=== PATIENT | female | born 1975 | race Hispanic/Latino ===

== ENCOUNTER 2018-06-25 17:05 | Inpatient (IN) | payer SELFPAY ==
[~2018-06-25] VITALS: Ht 157.5 cm; Wt 68.9 kg
[2018-06-25] MEDS ORDERED: SODIUM CHLORIDE 0.9% 1000ML 1,000 ML IV STA (17:11)
[2018-06-25 17:39] LABS: BASOPHILS % 0.1 % (0.0-1.0); LYMPHOCYTES # (AUTO) 0.7 (1.0-3.2); LYMPHOCYTES % 10.1 % (18.0-39.1); MEAN CORPUSCULAR HEMOGLOBIN 17.5 pg (28-32); MEAN CORPUSCULAR HGB CONC 27.6 g/dL (31-35); MEAN CORPUSCULAR VOLUME 63.4 fL (81-99); MONOCYTES # (AUTO) 0.1 (0.2-0.8); MONOCYTES % 1.5 % (4.4-11.3); NEUTROPHILS # (AUTO) 6.3 (2.1-6.9); NEUTROPHILS % 87.9 % (38.7-80.0); PLATELET COUNT 335 x10e3/uL (140-360); RED BLOOD COUNT 2.57 x10e6/uL (3.6-5.1); RED CELL DISTRIBUTION WIDTH 19.8 % (11.7-14.4)
[2018-06-25 17:53] LABS: ALANINE AMINOTRANSFERASE 32 IU/L (0-55); ALBUMIN/GLOBULIN RATIO 1.1 (0.8-2.0); ALKALINE PHOSPHATASE 45 IU/L (40-150); ANION GAP 13.8 mmol/L (8-16); BLOOD UREA NITROGEN 13 mg/dL (7-26); BUN/CREATININE RATIO 17 (6-25); CALCIUM 8.8 mg/dL (8.4-10.2); CARBON DIOXIDE 24 mmol/L (22-29); CHLORIDE 101 mmol/L (98-107); CREATININE, SERUM 0.76 mg/dL (0.57-1.11); EST GLOMERULAR FILTRATION RATE > 60 ML/MIN (60-); GLUCOSE 119 mg/dL (74-118); POTASSIUM 3.8 mmol/L (3.5-5.1); SODIUM 135 mmol/L (136-145)
[2018-06-25 18:05] LABS: HEMATOCRIT 16.3 % (34.2-44.1); HEMOGLOBIN 4.5 g/dL (12.0-16.0)
[2018-06-25 18:12] LABS: PROTHROMBIN TIME 14.1 seconds (11.9-14.5)
[2018-06-25] MEDS ORDERED: SODIUM CHLORIDE 0.9% 250ML 250 ML IV ONE (18:15)
[2018-06-25 18:27] LABS: CLARITY,URINE SL CLOUDY (CLEAR); COLOR,URINE YELLOW (YELLOW); KETONES,URINE TRACE (NEGATIVE); LEUKOCYTE ESTERASE ,URINE TRACE (NEGATIVE); NITRITE,URINE POSITIVE (NEGATIVE); PROTEIN,URINE DIPSTICK NEGATIVE (NEGATIVE); URINE UROBILINOGEN 0.2 mg/dL (0.2 - 1)
[2018-06-25 18:28] LABS: BILIRUBIN,URINE NEGATIVE (NEGATIVE)
[2018-06-25 18:37] LABS: BACTERIA,URINE FEW /HPF; EPITHELIAL CELLS,URINE FEW /LPF; RBC,URINE >50 /HPF (0-5); WBC,URINE (MAN) 0-5 /HPF (0-5)
--- NOTE | 2018-06-25 19:59 | Diagnostic Imaging Report ---
EXAM: US TRANSVAGINAL INDICATION: Vaginal bleeding COMPARISON: None TECHNIQUE: Grayscale transverse and sagittal transabdominal and transvaginal images were obtained of the pelvis. Transvaginal images were necessary to better assess anatomic detail. The ovaries were examined with grayscale, color Doppler, and spectral waveform analysis. LMP 06/12/18 FINDINGS: Uterus Orientation: Normal Size: 10.2 x 4.7 x 5.3 cm, Mass: None Cervix: Normal Endometrium: Thickness: 1.5 cm, upper limits of normal. Appearance:, Heterogeneous echotexture without focal thickening. Right ovary: Size: 2.0 x 2.7 x 2.3 cm Mass/Cyst: None Left ovary: Size: 2.6 x 2.8 x 3.0 cm Mass/Cyst: None Adnexa: Normal Cul-de-sac: No free fluid IMPRESSION: 1. Normal appearing ovaries. 2. Endometrial stripe borderline thickened, 1.5 cm Signed by: Dr Lulú Hunt MD on 06/25/2018 7:56 PM
[2018-06-25] MEDS ORDERED: SODIUM CHLORIDE 0.9% 250ML 250 ML ONE (21:26)
[2018-06-26] VITALS (8 sets, daily range): BP systolic 97–118; BP diastolic 60–70
[2018-06-26] MEDS: ACETAMINOPHEN 325 MG TAB PO PRN ×2 (00:46→15:19)
[2018-06-26] MEDS ORDERED: SODIUM CHLORIDE 0.9% 250ML 250 ML ONE (01:38)
[2018-06-26 06:59] LABS: HEMATOCRIT 19.4 % (34.2-44.1)
[2018-06-26] MEDS ORDERED: SODIUM CHLORIDE 0.9% 250ML 250 ML IV ONE (07:45)
[2018-06-26] MEDS ORDERED: ONDANSETRON HCL INJ 2 MG/ML VIAL IV PRN (10:15)
[2018-06-26] MEDS ORDERED: MORPHINE SULFATE 5 MG/ML VIAL IV PRN (10:30)
[2018-06-26] MEDS ORDERED: HYDROCODONE/APAP 5MG-325MG TAB PO PRN (10:30)
[2018-06-26] MEDS ORDERED: MORPHINE SULFATE INJ 4 MG/ML INJ IV PRN (10:30)
--- NOTE | 2018-06-26 11:03 | History and Physical ---
CHIEF COMPLAINT: Vaginal bleeding. HPI: This is a 42-year-old female who has had vaginal bleeding ongoing for the last 2 weeks. She reports that she is currently on her menstrual cycle. She does not follow up with BODYWORK THERAPIST as an outpatient. Does not have a PCP. She came in very anemic and very pale appearing, fatigued, and very weak. Found to have a hemoglobin of approximately about 4 to 4.5, and came into the ED for further evaluation. The patient is currently in IMCU and received 2 units packed RBCs. Current hemoglobin is 6 an continues to have vaginal bleeding. NOTCHING MACHINE OPERATOR consulted. REVIEW OF SYSTEMS: Pertinent positive is just vaginal bleeding, pale, weak, and lightheadedness. The rest of the 14-point review of systems have been reviewed with the patient and are negative. ALLERGIES: NO KNOWN DRUG ALLERGIES. HOME MEDICATIONS: None. PAST MEDICAL HISTORY: None. SURGICAL HISTORY: None. FAMILY HISTORY: Hypertension and diabetes. SOCIAL HISTORY: No drugs. No alcohol. Does not smoke. PHYSICAL EXAMINATION VITAL SIGNS: Temperature is 98.7, pulse 61, respiratory rate 16, blood pressure is 118/60, pulse ox 100% on room air. GENERAL: Not in acute distress. Alert and oriented times 3. Cooperative on examination. HEENT: Head is normocephalic and atraumatic. Eyes: Pupils equal, round and reactive to light bilaterally. Extraocular movements intact bilaterally. NECK: Supple. Good range of motion. Throat with no evidence of any erythema or exudates in the posterior pharynx. Has poor dentition. PULMONARY: Clear to auscultation bilaterally. No wheezing. No rales. No rhonchi. No crackles appreciated. CARDIOVASCULAR: Positive S1 and S2. No murmurs, rubs or gallops appreciated. ABDOMEN: Soft, nondistended and nontender to palpation. Bowel sounds present. MUSCULOSKELETAL: Strength is 5/5 throughout. No evidence of any muscle deficit on examination. LAB FINDINGS: Show hemoglobin yesterday was 4.5 and now 6. The rest of the electrolyte are stable. Platelets of 335,000. Sodium 135, potassium 3.8, chloride 101, bicarb 24, anion gap of 30, BUN is 13, creatinine is 0.76, glucose is 119. Calcium is 8.8. Total protein is 0.5, AST 27, ALT 32. Albumin is 4. Urinalysis was negative. MICROBIOLOGY: Urine culture is pending. IMAGING STUDIES: A transvaginal ultrasound shows endometrial lining thickening of 1.5 cm. Normal appearing ovaries. IMPRESSION 1. Vaginal bleeding. 2. Anemia secondary to vaginal bleeding. 3. Lightheadedness, dizziness and weakness. PLAN: At this time, the patient has received 2 units of packed RBCs. The current hemoglobin is 6. Will transfuse 3 more units of packed RBCs. Await for BODYWORK THERAPIST. Recommendation is pelvic examination. Get a.m. labs. No anticoagulation due to vaginal bleeding. Continue on a regular diet. Pain control. Discussed case with nursing staff. Job#: [id number] SIA
[2018-06-26] MEDS ORDERED: MEDROXYPROGESTERONE ACETATE 150 MG/ML VIAL IM ONE (12:45)
--- NOTE | 2018-06-26 13:18 | Consultation ---
DATE OF CONSULTATION: The patient is a 42 year old who came in complaining of heavy vaginal bleeding with clots for the last 2 weeks. Her previous periods were normal. She denies abnormal discharge, abdominal pain, loss of weight. Her ultrasound showed nonsignificant findings. However, checking her hemoglobin showed very low levels for which she will be having a blood transfusion. PAST MEDICAL HISTORY: Not significant. PAST SURGICAL HISTORY: Not significant. ALLERGIES: NO KNOWN DRUG ALLERGIES. MEDICATIONS: None. SOCIAL HISTORY: Denied smoking, ethanol or drug abuse. PHYSICAL EXAMINATION VITAL SIGNS: Stable. CHEST: Clear to auscultation. HEART: Regular rate and rhythm. ABDOMEN: Soft and nontender. ASSESSMENT AND PLAN: A 42 year old with menorrhagia. Ultrasound was insignificantly abnormal. I recommend giving the patient intramuscular injection of Depo-Provera 150 mg and 4 units of blood transfusion to improve her hemoglobin. Send her home to come to the office for evaluation and endometrial biopsy. The patient understands her options fully. All of her questions were answered. She will be coming to see me in the office in due course. Please send the patient home on oral iron therapy as well. Job#: [id number] RI cc:EBER BUENROSTRO MD
[2018-06-26 22:34] LABS: HEMATOCRIT 30.5 % (34.2-44.1); HEMOGLOBIN 9.9 g/dL (12.0-16.0)
[2018-06-27] VITALS (7 sets, daily range): BP systolic 92–122; BP diastolic 51–68
[2018-06-27 05:28] LABS: BASOPHILS % 0.3 % (0.0-1.0); EOSINOPHILS # (AUTO) 0.1 (0.0-0.4); HEMATOCRIT 30.4 % (34.2-44.1); LYMPHOCYTES % 28.7 % (18.0-39.1); MEAN CORPUSCULAR HEMOGLOBIN 24.1 pg (28-32); MEAN CORPUSCULAR HGB CONC 32.2 g/dL (31-35); MONOCYTES # (AUTO) 0.7 (0.2-0.8); MONOCYTES % 9.6 % (4.4-11.3); NEUTROPHILS # (AUTO) 4.1 (2.1-6.9); PLATELET COUNT 217 x10e3/uL (140-360); RED CELL DISTRIBUTION WIDTH 23.6 % (11.7-14.4)
[2018-06-27 05:42] LABS: ANION GAP 8.9 mmol/L (8-16); BLOOD UREA NITROGEN 9 mg/dL (7-26); BUN/CREATININE RATIO 13 (6-25); CALCIUM 8.4 mg/dL (8.4-10.2); CARBON DIOXIDE 25 mmol/L (22-29); CHLORIDE 109 mmol/L (98-107); CREATININE, SERUM 0.67 mg/dL (0.57-1.11); EST GLOMERULAR FILTRATION RATE > 60 ML/MIN (60-); GLUCOSE 92 mg/dL (74-118); POTASSIUM 3.9 mmol/L (3.5-5.1); SODIUM 139 mmol/L (136-145)
[2018-06-27 05:54] LABS: HEMOGLOBIN 9.8 g/dL (12.0-16.0); RED BLOOD COUNT 4.06 x10e6/uL (3.6-5.1)
[2018-06-27 05:55] LABS: MEAN CORPUSCULAR VOLUME 74.9 fL (81-99)
[2018-06-27 07:59] LABS: PLATELET ESTIMATE ADEQUATE; PLATELET MORPHOLOGY COMMENT NORMAL; RBC MORPHOLOGY COMMENT ABNORMAL
[2018-06-27 08:00] LABS: ANISOCYTOSIS MODERATE; HYPOCHROMASIA MODERATE; POIKILOCYTOSIS S; POLYCHROMASIA S
[2018-06-27] MEDS: ACETAMINOPHEN 325 MG TAB PO PRN (09:40)
[2018-06-27] MEDS ORDERED: FERROUS SULFAT325 MG PO (16:19)
--- NOTE | 2018-06-27 16:57 | Discharge Summary ---
FINAL DISCHARGE DIAGNOSES 1. Vaginal bleeding status post Depo shot given with blood transfusion. 2. Anemia secondary to #1. 3. Medical noncompliance. BUCKLE STRINGER: [facility]TAILINGS MAN. VITAL SIGNS: Temperature is 97.3, pulse 93, respiratory rate 14, blood pressure 106/51, pulse ox 95% on room air. LAB FINDINGS: White count is 6.8. Hemoglobin on admission was 4.5, then 6, then 9.9, then 9.8 after blood transfusion. Hematocrit is 30 and platelets 217. Coagulation: PT 14, INR 1, PTT 25. Chemistry: Sodium 139, potassium 3.9, chloride 109, bicarb 25, anion gap 8.9. BUN 9, creatinine 0.67. Glucose 92. Calcium 8.4. LFTs were normal. Beta hCG was negative. Urinalysis was 4+ blood and greater than 50 RBCs. MICROBIOLOGY: Urine culture was found to be negative. IMAGING STUDIES: Transvaginal ultrasound showed endometrial thickening of 1.5 cm thick. The ovaries appeared to be normal. HOSPITAL COURSE: This 42-year-old female with no past medical history comes in with severe onset of vaginal bleeding ongoing for the last 4 to 5 days. Patient reports that she was on her menses but has had increased vaginal bleeding. She reported to the ED due to fatigue and weakness. She was found to have a hemoglobin of 4.5. Patient was given blood transfusion. On discharge, her hemoglobin 9.8. OB-TAILINGS MAN was consulted. The patient was given a Depo-Provera shot IM. Patient was advised by OB-TAILINGS MAN to follow up as an outpatient in their office in 1 week to get an endometrial biopsy due to the fact that the endometrial lining is very thick and needs further evaluation. I discussed this with the patient, and she verbalized understanding. On discharge, the patient was doing well with no more evidence of vaginal bleeding. On the day of discharge, the vital signs are stable. Labs are reviewed and stable. The patient was seen and evaluated and examined thoroughly on the day of discharge. No other complaints. The patient verbalized an understanding and agreed to the plan of care, to follow up accordingly as an outpatient with her primary care physician in 1 week and OB-TAILINGS MAN in 1 week. MEDICATIONS: See med reconciliation form. DISPOSITION: Home. CONDITION: Stable. DIET: Heart healthy. In the event of any worsening symptoms, the patient was advised to come back to the ED for further evaluation. This discharge summary took greater than 35 minutes. EBER BUENROSTRO MD Job#: [id number]
== END 2018-06-27 17:14 | disposition home or self-care (01) | DRG 761 ==
LOC: ER 17:05 → ERHOLD 18:23 → IMCU 06-26 00:36 → MED/SURG 06-26 23:04
PROVIDERS: ADMIT Internal Medicine; ATTEND Internal Medicine
PROC: 30233N1 Transfusion of Nonautologous Red Blood Cells into Peripheral Vein, Percutaneous Approach (ICD-10-PCS; principal; 2018-06-26)
DX: N92.0 Excessive and frequent menstruation with regular cycle (principal); D50.0 Iron deficiency anemia secondary to blood loss (chronic); Z91.19 Patient's noncompliance with other medical treatment and regimen; R93.89 Abnormal findings on diagnostic imaging of other specified body structures
CPT/HCPCS: 36415; 76830; 80048; 80053; 81001; 84702; 85014; 85018; 85025; 85610; 85730; 86850; 86900; 86920; 87086; 99284; J7030; J7050; P9016

== ENCOUNTER 2018-10-04 17:35 | Emergency (ER) | payer SELFPAY ==
[~2018-10-04] VITALS: Ht 157.5 cm; Wt 73.5 kg
[~2018-10-04 17:35] MED LIST: FERROUS SULFAT325 MG PO
--- OUTSIDE RECORDS SUMMARY | 2018-10-04 17:38 | XMS REPORT | Clinical Summary ---
Author Author [facility] Organization [facility] Address Unknown Phone Unavailable Care Team Providers Care Cement Mason Name Role Phone PCP Unavailable Allergies Comments Active Allergy Reactions Severity Noted Date Morphine Itching Medium 09/15/2018 Medications End Date Status Medication Sig Dispensed Refills Start Date Active docusate sodium (COLACE) Take 1 20 capsule 0 100 mg capsule by 8 capsuleIndications: mouth 2 times Vaginal bleeding daily as needed for up to 10 doses for Constipation. Active POTASSIUM OR Take by 0 mouth. Active IRON OR Take by 0 mouth. Active ibuprofen (MOTRIN) 600 mg Take 1 tablet 30 tablet 0 tabletIndications: by mouth 9 Uterine leiomyoma, every 6 unspecified location, hours. Vaginal bleeding Active traMADol (ULTRAM) 50 mg Take 1 tablet 15 tablet 0 tabletIndications: by mouth 9 Uterine leiomyoma, every 6 hours unspecified location, as needed for Vaginal bleeding Pain. Active medroxyPROGESTERone In the 60 tablet 0 (PROVERA) 10 mg setting of 9 tabletIndications: heavy vaginal Uterine leiomyoma, bleeding take unspecified location, two 10mg Vaginal bleeding tablets by mouth daily till the bleeding stops.. 08/09/2018 medroxyPROGESTERone Take 2 60 tablet 0 (PROVERA) 10 mg tablets by 8 tabletIndications: mouth daily Vaginal bleeding for 30 days. 08/09/2018 ferrous sulfate 325 mg Take 1 tablet 30 tablet 0 (65 mg iron) by mouth 8 tabletIndications: daily (with Vaginal bleeding breakfast) for 30 days. 09/26/2018 docusate sodium (COLACE) Take 2 10 capsule 0 100 mg capsules by 9 capsuleIndications: mouth 2 times Uterine leiomyoma, daily as unspecified location, needed for up Pelvic pain in female to 10 days for Constipation. Active Problems Problem Noted Date Fibroid uterus 08/29/2018 Overview: Added automatically from request for surgery [id number] Pelvic pain in female 07/10/2018 Vaginal bleeding Fibroid Encounters Care Team Description Date Type Specialty Althea Dahl, MD 09/15/2018 Anesthesia Event Laurence Horvath MD Exam Under Anesthesia, Vaginal myomectomy, Insertion of Vaginal Tamponade 09/15/2018 Surgery Laurence Horvath MD Uterine leiomyoma, unspecified location (Primary Dx); Vaginal bleeding; Pelvic pain in female 09/15/2018 Hospital - Encounter 09/16/2018 Josep Biggs MD 09/07/2018 Hospital Lab Encounter Laurence Horvath MD Vu, Joseph H, MD 09/07/2018 Hospital Encounter Di Griffin Interpretation 09/07/2018 Telephone Lexie Roman Interpretation 09/07/2018 Telephone 09/07/2018 Travel Davin Alvarado I Surgery 09/05/2018 Telephone Paz Alicea NP Follow-up 09/04/2018 Telephone Gynecology Samir Christensen, MD Josep Biggs MD Abnormal uterine bleeding (AUB) (Primary Dx); Uterine leiomyoma, unspecified location 08/29/2018 Office Visit Gynecology Allyson Osborne ResidentMD 08/29/2018 Pre-Clinic Review Kaela Rosales Interpretation 08/29/2018 Telephone Davin Griffin Interpretation 08/29/2018 Telephone Paz Alicea NP Follow-up 08/25/2018 Telephone Gynecology NO SHOW ENCOUNTER (Primary Dx) 08/11/2018 Office Visit Gynecology Dejon Foster Interpretation 08/11/2018 Telephone Paz Alicea NP Follow-up 08/11/2018 Telephone Gynecology NO SHOW ENCOUNTER (Primary Dx) 08/04/2018 Office Visit Gynecology Paz Alicea NP Follow-up 08/04/2018 Telephone Gynecology Di Griffin Interpretation 08/04/2018 Telephone Paz Alicea NP Follow-up 08/04/2018 Telephone Gynecology Chaz Miguel Interpretation 08/04/2018 Telephone Kaela Rosales Interpretation 08/04/2018 Telephone 08/04/2018 Travel Ancelmo Smith MD Pelvic pain in female (Primary Dx); Vaginal bleeding 07/10/2018 Emergency Emergency Medicine 07/10/2018 Travel after 10/03/2017 Social History Date Tobacco Use Types Packs/Day Years Used Unknown If Ever Smoked Smokeless Tobacco: Never Used Alcohol Use Drinks/Week oz/Week Comments Not Currently Sex Assigned at Date Recorded Not on file Industry Job Start Date Occupation Not on file Not on file Not on file Travel End Travel History Travel Start No recent travel history available. Last Filed Vital Signs Time Taken Vital Sign Reading 09/16/2018 11:30 AM FLATWORK FOLDER Blood Pressure 131/78 09/16/2018 11:30 AM FL[employer]WORK FOLDER Pulse 60 09/16/2018 11:20 AM FLATWORK FOLDER Temperature 36.9 C (98.4 F) 09/16/2018 11:30 AM FLATWORK FOLDER Respiratory Rate 18 09/15/2018 9:03 PM FLATWORK FOLDER Oxygen Saturation 99% - Inhaled Oxygen - Concentration 09/15/2018 7:30 AM FLATWORK FOLDER Weight 73.5 kg (162 lb) 09/15/2018 7:30 AM FLATWORK FOLDER Height 154.9 cm (5' 1") 09/15/2018 7:30 AM FLATWORK FOLDER Body Mass Index 30.61 Plan of Treatment Care Team Description Date Type Specialty Josep Biggs MD [address] [place] [address] [phone] 4 wk postop 2018 Office Visit Gynecology Health Maintenance Due Date Last Done Comments Cervical Cancer Scrn (3 1994 Yrs) Breast Cancer Scrn 2013 (Yearly) IMM Influenza Seasonal 04/17/2018Apr to September (>/=19 yrs) Procedures Comments Procedure Name Priority Date/Time Associated Diagnosis CBC STAT 09/16/2018 4:40 AM FLATWORK FOLDER CBC/DIFF STAT 09/15/2018 5:05 PM FLATWORK FOLDER SEQUENTIAL COMPRESSION STAT 09/15/2018 PUMP 1:08 PM FLATWORK FOLDER INFUSION PUMP STAT 09/15/2018 1:08 PM FLATWORK FOLDER TRANSFUSE (ADDITIONAL RED Routine 09/15/2018 CELL UNITS - NURSING) 12:39 PM FLATWORK FOLDER [facility] SURGICAL PATHOLOGY Routine 09/15/2018 12:37 PM FLATWORK FOLDER INTUBATION Routine 09/15/2018 12:03 PM FLATWORK FOLDER Procedure Note - Na Adams CRNA - 09/15/2018 12:03 PM FLATWORK FOLDER Intubation Date/Time: 09/15/2018 12:00 PM Urgency: elective Airway not difficult General Informatio n and Staff Patient location during procedure: OR Anesthesio logist: Lillie Han MD Resident/C RNA: Na Adams CRNA Performed: resident/C RNA Indicatio ns and Patient Condition Indication s for airway management : anesthesia Spontaneou s ventilatio n: present (prior to induction) Sedation level: deep (after induction) Preoxygena bulmaro: yes Patient position: sniffing Mask difficulty assessment : 0 - not attempted Final Airway Details Final airway type: supraglott ic airway Successful airway: I-Gel Size 4 Number of attempts at approach: 1 Additiona l Comments Preoxygena bulmaro/denitr ogenated X > 5 minutes. LMA easily placed X 1 attempt by QUALITY HEAD. OGT easily advanced to 65 cm; stomach decompress ed. Atraumatic . VALET ATTENDANT - HYSTEROSCOPY 09/15/2018 Fibroid uterus (H-SCOPE) 9:05 AM FLATWORK FOLDER Special Needs 6:30 am arrival time confirmed with patient 12 LEAD EKG Routine 09/15/2018 8:22 AM FLATWORK FOLDER TYPE AND CROSSMATCH Routine 09/15/2018 (RBCS-LAB) 7:30 AM FLATWORK FOLDER CBC STAT 09/15/2018 7:30 AM FLATWORK FOLDER POCT URINE DIPSTICK - Routine 09/15/2018 TYPE AND SCREEN Routine 09/07/2018 Abnormal uterine bleeding 9:07 AM FLATWORK FOLDER (AUB) Uterine leiomyoma, unspecified location PATHOLOGIST REVIEW Routine 09/07/2018 8:55 AM FLATWORK FOLDER HIV-1/HIV-2 ROUTINE Routine 09/07/2018 Abnormal uterine bleeding SCREENING 8:55 AM FLATWORK FOLDER (AUB) Uterine leiomyoma, unspecified location CBC/DIFF Routine 09/07/2018 Abnormal uterine bleeding 8:55 AM FLATWORK FOLDER (AUB) Uterine leiomyoma, unspecified location DUPLEX DOPPLER ABD/PEL STAT 07/10/2018 Pelvic pain in female VASCULAR STUDY, COMPLETE 5:06 PM FLATWORK FOLDER U/S PELVIS LTD NON-OB STAT 07/10/2018 Pelvic pain in female 5:06 PM FLATWORK FOLDER U/S TRANSVAGINAL STAT 07/10/2018 Pelvic pain in female 5:06 PM FLATWORK FOLDER TEST STAT 07/10/2018 3:15 PM FLATWORK FOLDER UA CHEMISTRIES STAT 07/10/2018 3:15 PM FLATWORK FOLDER TYPE AND SCREEN STAT 07/10/2018 2:25 PM FLATWORK FOLDER BMP POC Routine 07/10/2018 2:17 PM FLATWORK FOLDER CBC/DIFF Routine 07/10/2018 2:05 PM FLATWORK FOLDER after 10/03/2017 Results * CBC (09/16/2018 4:40 AM FLATWORK FOLDER) Only the most recent of 2 results within the time period is included. WBC 6.2 4.5 - 11.0 K/uL BT MAIN-STATION 2 RBC 3.93 (L) 4.20 - 5.40 M/uL BT MAIN-STATION 2 Hemoglobin 9.8 (L) 12.0 - 16.0 g/dL BT MAIN-STATION 2 Hematocrit 31.9 (L) 37.0 - 47.0 % BT MAIN-STATION 2 MCV 81 (L) 82 - 92 fL BT MAIN-STATION 2 MCH 24.9 (L) 27.0 - 32.0 pg BT MAIN-STATION 2 MCHC 30.7 (L) 32.0 - 36.0 g/dL BT MAIN-STATION 2 RDW 51.2 (H) 36.4 - 46.3 fL BT MAIN-STATION 2 Platelet 220 150 - 400 K/uL BT MAIN-STATION 2 Mean Platelet 10.2 9.4 - 12.4 fL BT MAIN-STATION Volume 2 Percent NRBC 0.0 BT MAIN-STATION 2 Absolute NRBC 0.00 BT MAIN-STATION 2 Specimen Blood Performing Organization Address City/State/Zipcode Phone Number [facility] BT MAIN-STATION 2 * CBC/DIFF (09/15/2018 5:05 PM FLATWORK FOLDER) Only the most recent of 3 results within the time period is included. WBC 5.6 4.5 - 11.0 K/uL BT MAIN-STATION 2 RBC 3.95 (L) 4.20 - 5.40 M/uL BT MAIN-STATION 2 Hemoglobin 9.9 (L) 12.0 - 16.0 g/dL BT MAIN-STATION 2 Hematocrit 32.3 (L) 37.0 - 47.0 % BT MAIN-STATION 2 MCV 82 82 - 92 fL BT MAIN-STATION 2 MCH 25.1 (L) 27.0 - 32.0 pg BT MAIN-STATION 2 MCHC 30.7 (L) 32.0 - 36.0 g/dL BT MAIN-STATION 2 RDW 51.1 (H) 36.4 - 46.3 fL BT MAIN-STATION 2 Platelet 213 150 - 400 K/uL BT MAIN-STATION 2 Mean Platelet 9.9 9.4 - 12.4 fL BT MAIN-STATION Volume 2 Percent NRBC 0.0 BT MAIN-STATION 2 Absolute NRBC 0.00 BT MAIN-STATION 2 Neutrophil 64.1 34.0 - 70.0 % BT MAIN-STATION 2 Lymphocyte 25.2 20.0 - 50.0 % BT MAIN-STATION 2 Monocyte 9.3 5.0 - 12.0 % BT MAIN-STATION 2 Eosinophil 0.5 (L) 0.7 - 5.0 % BT MAIN-STATION 2 Basophil 0.5 0.1 - 1.2 % BT MAIN-STATION 2 Pct Immat Gran 0.4 0.0 - 0.5 BT MAIN-STATION 2 Neutrophil, Abs 3.59 1.56 - 6.13 K/uL BT MAIN-STATION 2 Lymphocyte, Abs 1.41 1.18 - 3.74 K/uL BT MAIN-STATION 2 Monocyte, Abs 0.52 (H) 0.24 - 0.36 K/uL BT MAIN-STATION 2 Eosinophil, Abs 0.03 (L) 0.04 - 0.36 K/uL BT MAIN-STATION 2 Basophil, Abs 0.03 0.01 - 0.08 K/uL BT MAIN-STATION 2 Absol Immat 0.02 0.00 - 0.03 K/uL BT MAIN-STATION Gran 2 Specimen Blood Performing Organization Address City/State/Zipcode Phone Number [facility] BT MAIN-STATION 2 * TRANSFUSE (ADDITIONAL RED CELL UNITS - NURSING) (09/15/2018 12:39 PM FLATWORK FOLDER) Only the most recent of 2 results within the time period is included. * [facility] SURGICAL PATHOLOGY (09/15/2018 12:37 PM FLATWORK FOLDER) HX FINAL UTERINE FIBROID, MYOMECTOMY: COPATH DIAGNOSIS - LEIOMYOMA Carmel Solo/[id number] Staff Pathologist Narrative Performed At [facility] LIZETT KENNEY [facility] Date of 1975 Hospital Number [id number] Location [address] Obstetrics SURGICAL PATHOLOGY Collected:09/15/2018 12:37 Received:09/15/2018 14:05 PATHOLOGIC DIAGNOSIS UTERINE FIBROID, MYOMECTOMY: - LEIOMYOMA Carmel Solo/[id number] Staff Pathologist Pertinent Clinical Information Prolapsing fibroid Gross Description Specimen Material: Uterine fibroid The case is received in one part labeled with the patient's name "LIZETT KENNEY", medical record number and given accession number [id number], and it is accompanied by a requisition form labeled with the same name and accession number. Received in formalin labeled "UTERINE FIBROID" is a 14.7 gram, 4.5 x 2.5 x 2.5 cm polypoid red-gloria tissue with a stalk at one end.The presumed stalk is inked blue.The specimen is serially sectioned to reveal a gloria-white to yellow whorled cut surface that is edematous.Paving Bed Maker sections including stalk are submitted in cassettes [id number]. Marjan HAAS/[id number] Pathology Resident Microscopic Description Fibroid is a well-circumscribed cellular proliferation of spindled cells with no atypia, increased mitosis, or necrosis seen.There is overlying endometrium with exogenous hormonal effect. I have personally reviewed the relevant preparations for the specimen(s), reviewedand agreed with the resident/fellow's interpretation. Marjan HAAS/[id number] Pathology Resident Electronically Signed Out Carmel Solo MD, MPH/[id number] Staff Pathologist Performing Organization Address City/State/Zipcode Phone Number [facility], [place] * 12 LEAD EKG (09/15/2018 8:22 AM FLATWORK FOLDER) 12 LEAD EKG FOR SMS [facility] Test Date:2018-09-15 Pat Name: LIZETT KENNEY Department: [facility] Room: Gender: F Kettle Girl: HILDA [id number] [birth year] Requested By: LILLIE Black Order Number: [id number] Reading MD: Jing Oropeza M.D. Measurements Intervals [place] Rate: 71 P:64 TX: 151 QRS: 45 QRSD: 90 T:22 QT: 394 QTc:431 Interpretive Statements SINUS RHYTHM Electronically Signed On 09-15-2018 8:32:18 FLATWORK FOLDER by Jing Oropeza M.D. Performing Organization Address City/[facility] Phone Number [facility] * TYPE AND CROSSMATCH (RBCS-LAB) (09/15/2018 7:30 AM FLATWORK FOLDER) ABO/RH O Positive BT BLOOD BANK Antibody Screen Negative BT BLOOD BANK Sample 09/18/2018 BT BLOOD BANK Expiration Unit Number [id number] BT BLOOD BANK Blood Component Leuko-poor red cells BT BLOOD BANK UNIT DIVISION 0 BT BLOOD BANK Status of Unit Issued,final BT BLOOD BANK Transfusion OK to transfuse BT BLOOD BANK Status Crossmatch Compatible BT BLOOD BANK Result Unit Number [id number] BT BLOOD BANK Blood Component Leuko-poor red cells BT BLOOD BANK UNIT DIVISION 0 BT BLOOD BANK Status of Unit Issued,final BT BLOOD BANK Transfusion OK to transfuse BT BLOOD BANK Status Crossmatch Compatible BT BLOOD BANK Result Unit Number [id number] BT BLOOD BANK Blood Component Leuko-poor red cells BT BLOOD BANK UNIT DIVISION 0 BT BLOOD BANK Status of Unit Issued,final BT BLOOD BANK Transfusion OK to transfuse BT BLOOD BANK Status Crossmatch Compatible BT BLOOD BANK Result Unit Number [id number] BT BLOOD BANK Blood Component Leuko Reduced Red Cells BT BLOOD BANK UNIT DIVISION 0 BT BLOOD BANK Status of Unit Issued,final BT BLOOD BANK Transfusion OK to transfuse BT BLOOD BANK Status Crossmatch Compatible BT BLOOD BANK Result Specimen Blood Performing Organization Address City/State/Zipcode Phone Number [facility] BT BLOOD BANK * POCT URINE DIPSTICK - (09/15/2018) Control Narrative Performed At Upt negative, reference range negative. * HIV-1/HIV-2 ROUTINE SCREENING (09/07/2018 8:55 AM FLATWORK FOLDER) HIV-1/HIV-2 Negative NEG BT MAIN-STATION 2 Performing Organization Address City/[facility] Phone Number [facility] MAIN-STATION 2 * PATHOLOGIST REVIEW (09/07/2018 8:55 AM FLATWORK FOLDER) Pathologist (note) BT MAIN-STATION Review Slide reviewed for cell 1 identification. White blood cells show predominantly neutrophils with slight left shift. Lymphocytes have morphologic spectrum including reactive forms. No circulating blasts are noted. Electronically signed out by: Leandro Alaniz M.D./[id number] Performing Organization Address City/[facility]/Zipcode Phone Number [facility] MAIN-STATION 1 * DUPLEX DOPPLER ABD/PEL VASCULAR STUDY, COMPLETE (07/10/2018 5:06 PM FLATWORK FOLDER) Impressions Performed At IMPRESSION: SMS Two intrauterine fibroids in the anterior fundus/body of the uterus, as described above. Otherwise, unremarkable pelvic ultrasound exam. Dictated By: Camron Martin MD, 07/10/2018 5:12 PM I have reviewed the study and agree with the findings in this report. Signed By: Manuel Ocampo MD, 07/10/2018 5:20 PM Narrative Performed At EXAM: Transabdominal and Transvaginal Pelvic Ultrasound with Duplex SMS INDICATION: pelvic pain. Heavy vag bleeding. COMPARISON: None TECHNIQUE: Grayscale transverse and sagittal transabdominal and transvaginal images were obtained of the pelvis. Transvaginal imaging was medically necessary to better evaluate the endometrium and the adnexa.The ovaries were examined with grayscale, color Doppler, and spectral waveform analysis. CLINICAL HISTORY: 42 year old A0; last menstrual period: 06/11/2018. FINDINGS: Uterus Orientation: Normal Size: 8.7 x 6.2 x 5.5 cm, normal Mass: A 1.3 x 1 x 1.2 cm intramural fibroid is visualized in the anterior body. A 1.2 x 1.5 x 1.9 cm jugular fibroid is visualized in the anterior fundus. Cervix: Normal Endometrium: Thickness: 1.4 cm, Normal. Appearance: Homogeneous echotexture without focal thickening. Right ovary: Not visualized. Left ovary: Not visualized. Adnexa: Normal Cul-de-sac: No free fluid Procedure Note Interface, Rad/Mammog In - 07/10/2018 5:25 PM FLATWORK FOLDER EXAM: Transabdominal and Transvaginal Pelvic Ultrasound with Duplex INDICATION: pelvic pain. Heavy vag bleeding. COMPARISON: None TECHNIQUE: Grayscale transverse and sagittal transabdominal and transvaginal images were obtained of the pelvis. Transvaginal imaging was medically necessary to better evaluate the endometrium and the adnexa. The ovaries were examined with grayscale, color Doppler, and spectral waveform analysis. CLINICAL HISTORY: 42 year old A0; last menstrual period: 06/11/2018. FINDINGS: Uterus Orientation: Normal Size: 8.7 x 6.2 x 5.5 cm, normal Mass: A 1.3 x 1 x 1.2 cm intramural fibroid is visualized in the anterior body. A 1.2 x 1.5 x 1.9 cm jugular fibroid is visualized in the anterior fundus. Cervix: Normal Endometrium: Thickness: 1.4 cm, Normal. Appearance: Homogeneous echotexture without focal thickening. Right ovary: Not visualized. Left ovary: Not visualized. Adnexa: Normal Cul-de-sac: No free fluid IMPRESSION IMPRESSION: Two intrauterine fibroids in the anterior fundus/body of the uterus, as described above. Otherwise, unremarkable pelvic ultrasound exam. Dictated By: Camron Martin MD, 07/10/2018 5:12 PM I have reviewed the study and agree with the findings in this report. Signed By: Manuel Ocampo MD, 07/10/2018 5:20 PM Performing Organization Address City/State/Zipcode Phone Number SMS * U/S PELVIS LTD NON-OB (07/10/2018 5:06 PM FLATWORK FOLDER) Impressions Performed At IMPRESSION: SMS Two intrauterine fibroids in the anterior fundus/body of the uterus, as described above. Otherwise, unremarkable pelvic ultrasound exam. Dictated By: Camron Martin MD, 07/10/2018 5:12 PM I have reviewed the study and agree with the findings in this report. Signed By: Manuel Ocampo MD, 07/10/2018 5:20 PM Narrative Performed At EXAM: Transabdominal and Transvaginal Pelvic Ultrasound with Duplex SMS INDICATION: pelvic pain. Heavy vag bleeding. COMPARISON: None TECHNIQUE: Grayscale transverse and sagittal transabdominal and transvaginal images were obtained of the pelvis. Transvaginal imaging was medically necessary to better evaluate the endometrium and the adnexa.The ovaries were examined with grayscale, color Doppler, and spectral waveform analysis. CLINICAL HISTORY: 42 year old A0; last menstrual period: 06/11/2018. FINDINGS: Uterus Orientation: Normal Size: 8.7 x 6.2 x 5.5 cm, normal Mass: A 1.3 x 1 x 1.2 cm intramural fibroid is visualized in the anterior body. A 1.2 x 1.5 x 1.9 cm jugular fibroid is visualized in the anterior fundus. Cervix: Normal Endometrium: Thickness: 1.4 cm, Normal. Appearance: Homogeneous echotexture without focal thickening. Right ovary: Not visualized. Left ovary: Not visualized. Adnexa: Normal Cul-de-sac: No free fluid Procedure Note Interface, Rad/Mammog In - 07/10/2018 5:25 PM FLATWORK FOLDER EXAM: Transabdominal and Transvaginal Pelvic Ultrasound with Duplex INDICATION: pelvic pain. Heavy vag bleeding. COMPARISON: None TECHNIQUE: Grayscale transverse and sagittal transabdominal and transvaginal images were obtained of the pelvis. Transvaginal imaging was medically necessary to better evaluate the endometrium and the adnexa. The ovaries were examined with grayscale, color Doppler, and spectral waveform analysis. CLINICAL HISTORY: 42 year old A0; last menstrual period: 06/11/2018. FINDINGS: Uterus Orientation: Normal Size: 8.7 x 6.2 x 5.5 cm, normal Mass: A 1.3 x 1 x 1.2 cm intramural fibroid is visualized in the anterior body. A 1.2 x 1.5 x 1.9 cm jugular fibroid is visualized in the anterior fundus. Cervix: Normal Endometrium: Thickness: 1.4 cm, Normal. Appearance: Homogeneous echotexture without focal thickening. Right ovary: Not visualized. Left ovary: Not visualized. Adnexa: Normal Cul-de-sac: No free fluid IMPRESSION IMPRESSION: Two intrauterine fibroids in the anterior fundus/body of the uterus, as described above. Otherwise, unremarkable pelvic ultrasound exam. Dictated By: Camron Martin MD, 07/10/2018 5:12 PM I have reviewed the study and agree with the findings in this report. Signed By: Manuel Ocampo MD, 07/10/2018 5:20 PM Performing Organization Address City/State/Zipcode Phone Number SMS * U/S TRANSVAGINAL (07/10/2018 5:06 PM FLATWORK FOLDER) Impressions Performed At IMPRESSION: SMS Two intrauterine fibroids in the anterior fundus/body of the uterus, as described above. Otherwise, unremarkable pelvic ultrasound exam. Dictated By: Camron Martin MD, 07/10/2018 5:12 PM I have reviewed the study and agree with the findings in this report. Signed By: Manuel Ocampo MD, 07/10/2018 5:20 PM Narrative Performed At EXAM: Transabdominal and Transvaginal Pelvic Ultrasound with Duplex SMS INDICATION: pelvic pain. Heavy vag bleeding. COMPARISON: None TECHNIQUE: Grayscale transverse and sagittal transabdominal and transvaginal images were obtained of the pelvis. Transvaginal imaging was medically necessary to better evaluate the endometrium and the adnexa.The ovaries were examined with grayscale, color Doppler, and spectral waveform analysis. CLINICAL HISTORY: 42 year old A0; last menstrual period: 06/11/2018. FINDINGS: Uterus Orientation: Normal Size: 8.7 x 6.2 x 5.5 cm, normal Mass: A 1.3 x 1 x 1.2 cm intramural fibroid is visualized in the anterior body. A 1.2 x 1.5 x 1.9 cm jugular fibroid is visualized in the anterior fundus. Cervix: Normal Endometrium: Thickness: 1.4 cm, Normal. Appearance: Homogeneous echotexture without focal thickening. Right ovary: Not visualized. Left ovary: Not visualized. Adnexa: Normal Cul-de-sac: No free fluid Procedure Note Interface, Rad/Mammog In - 07/10/2018 5:25 PM FLATWORK FOLDER EXAM: Transabdominal and Transvaginal Pelvic Ultrasound with Duplex INDICATION: pelvic pain. Heavy vag bleeding. COMPARISON: None TECHNIQUE: Grayscale transverse and sagittal transabdominal and transvaginal images were obtained of the pelvis. Transvaginal imaging was medically necessary to better evaluate the endometrium and the adnexa. The ovaries were examined with grayscale, color Doppler, and spectral waveform analysis. CLINICAL HISTORY: 42 year old A0; last menstrual period: 06/11/2018. FINDINGS: Uterus Orientation: Normal Size: 8.7 x 6.2 x 5.5 cm, normal Mass: A 1.3 x 1 x 1.2 cm intramural fibroid is visualized in the anterior body. A 1.2 x 1.5 x 1.9 cm jugular fibroid is visualized in the anterior fundus. Cervix: Normal Endometrium: Thickness: 1.4 cm, Normal. Appearance: Homogeneous echotexture without focal thickening. Right ovary: Not visualized. Left ovary: Not visualized. Adnexa: Normal Cul-de-sac: No free fluid IMPRESSION IMPRESSION: Two intrauterine fibroids in the anterior fundus/body of the uterus, as described above. Otherwise, unremarkable pelvic ultrasound exam. Dictated By: Camron Martin MD, 07/10/2018 5:12 PM I have reviewed the study and agree with the findings in this report. Signed By: Manuel Ocampo MD, 07/10/2018 5:20 PM Performing Organization Address City/[facility]/[employer] Phone Number SMS * UA CHEMISTRIES (07/10/2018 3:15 PM FLATWORK FOLDER) Color Bloody BT MAIN-STATION Results may be spuriously 3 positive due to bloody specimen Clarity Cloudy BT MAIN-STATION 3 Spec [place] 1.024 1.001 - 1.035 BT MAIN-STATION 3 pH 6.0 5 - 8 BT MAIN-STATION 3 Protein 3+ (A) NEG BT MAIN-STATION 3 Glucose Negative NEG BT MAIN-STATION 3 Ketone Negative NEG BT MAIN-STATION 3 Bilirubin Negative NEG BT MAIN-STATION 3 Nitrate Negative NEG BT MAIN-STATION 3 Urobilinogen <1.0 0.2 - 1.0 EU/dL BT MAIN-STATION 3 Leukocyte Negative NEG BT MAIN-STATION 3 Blood 3+ (A) NEG BT MAIN-STATION 3 RBC >182 (H) 0 - 4 /HPF BT MAIN-STATION 3 WBC 9 (H) 0 - 5 /HPF BT MAIN-STATION 3 Bacteria Few BT MAIN-STATION 3 Specimen Urine Performing Organization Address [facility] Phone Number [facility] BT MAIN-STATION 3 * TEST (07/10/2018 3:15 PM FLATWORK FOLDER) Negative BT MAIN-STATION 3 Specimen Urine Performing Organization Address [facility] Phone Number [facility] 3 * BMP POC (07/10/2018 2:17 PM FLATWORK FOLDER) CO2 POC 22 21 - 32 mmol/L BT MAIN-STATION 1 Chloride POC 107 98 - 107 mmol/L BT MAIN-STATION 1 Potassium POC 3.7 3.50 - 5.10 mmol/L BT MAIN-STATION 1 Sodium POC 141 136 - 145 mmol/L BT MAIN-STATION 1 Glucose POC 84 74 - 106 mg/dL BT MAIN-STATION 1 Urea Nitrogen 8 7 - 18 mg/dL BT MAIN-STATION POC 1 Creatinine POC 0.5 (L) 0.6 - 1.3 mg/dL BT MAIN-STATION 1 Calcium Ionized 1.12 (L) 1.15 - 1.29 mmol/L BT MAIN-STATION POC 1 Hemoglobin POC 13.3 12.0 - 16.0 g/dL BT MAIN-STATION 1 Hematocrit POC 39.0 37.0 - 47.0 % BT MAIN-STATION 1 GFR, Estimated >60 mL/min/1.73 m2 BT MAIN-STATION 1 GFR, Estim, >60 mL/min/1.73 m2 BT MAIN-STATION Afr-Am 1 Performing Organization Address City/State/Zipcode Phone Number MISYS BT MAIN-STATION 1 after 10/03/2017 Insurance Type Payer Benefit Subscriber ID Effective Phone Address Plan / Dates Group [facility] xxxxxx 2018-[address] [employer] FAMILY [id number] PL[place], [place] [id number] [employer] PLAN H[employer] PLAN xxxxxx 2018- [phone] [place] [address] [address] [place] [address] Advance Directives For more information, please contact: [address] [address] Date Inactivated Comments Code Status Date Activated 09/16/2018 3:58 PM Full Code 09/15/2018 8:03 PM
--- OUTSIDE RECORDS SUMMARY | 2018-10-04 17:38 | XMS REPORT ---
Author Author [facility] Address Unknown Phone Unavailable Care Team Providers Care Hvac Mechanic Name Role Phone PORTER Claudia EBER Unavailable Unavailable Problems This patient has no known problems. Allergies, Adverse Reactions, Alerts This patient has no known allergies or adverse reactions. Medications This patient has no known medications. Encounters Start Date/Time End Date/Time Encounter Type Admission Type Attending [facility] Care Department Encounter ID [id number] 00:00:00 2018 00:00:00 Outpatient [facility] [id number] 2018-09-15 07:13:00 2018-09-15 07:13:00 Outpatient [facility] [id number] 2018-09-15 00:00:00 2018-09-15 00:00:00 Outpatient [facility] [id number] 2018-09-11 00:00:00 2018-09-11 00:00:00 Outpatient [facility] [id number] 2018-09-07 08:58:38 2018-09-07 08:58:38 Outpatient [facility] [id number] 2018-09-07 07:33:32 2018-09-07 07:33:32 Outpatient [facility] [id number] 2018-09-07 00:00:00 2018-09-07 00:00:00 Outpatient [facility] [id number] 2018-09-07 00:00:00 2018-09-07 00:00:00 Outpatient [facility] [id number] 2018-09-07 00:00:00 2018-09-07 00:00:00 Outpatient [facility] [id number] 2018-08-29 09:37:27 2018-08-29 09:37:27 Outpatient [facility] [id number] 2018-08-11 00:00:00 2018-08-11 00:00:00 Outpatient [facility] [id number] 2018-08-04 00:00:00 2018-08-04 00:00:00 Outpatient [facility] [id number] 2018-07-10 15:56:59 2018-07-10 15:56:59 Emergency [facility] [id number] 2018-07-10 15:56:57 2018-07-10 15:56:57 Emergency [facility] [id number] 2018-07-10 13:54:45 2018-07-10 13:54:45 Emergency [facility] [id number] Results Test Description Test Time Test Comments Text Results Atomic Results Result Comments US TRANSVAGINAL 2018-06-25 19:51:00 [place] [address] Patient Name: JULIO TRAYLOR MR #: [id number] : 1975 Age/Sex: 42/F Req #: [id number] [facility] Physician: EBER BUENROSTRO MD Ordered by: TERESA GUERRA NP Report #: [id number] Location: [facility] Room/Bed: [place] [address] Procedure: [id number] US/US TRANSVAGINAL Exam Date: 06/25/18 Exam Time: 1820 REPORT STATUS: Signed EXAM: US TRANSVAGINAL INDICATION: Vaginal bleeding COMPARISON: None TECHNIQUE: Grayscale transverse and sagittal transabdominal and transvaginal images were obtained of the pelvis. Transvaginal images were necessary to better assess anatomic detail. The ovaries were examined with grayscale, color Doppler, and spectral waveform analysis. LMP 06/12/18 FINDINGS: Uterus Orientation: Normal Size: 10.2 x 4.7 x 5.3 cm, Mass: None Cervix: Normal Endometrium: Thickness: 1.5 cm, upper limits of normal. Appearance:, Heterogeneous echotexture without focal thickening. Right ovary: Size: 2.0 x 2.7 x 2.3 cm Mass/Cyst: None Left ovary: Size: 2.6 x 2.8 x 3.0 cm Mass/Cyst: None Adnexa: Normal Cul-de-sac: No free fluid IMPRESSION: 1. Normal appearing ovaries. 2. Endometrial stripe borderline thickened, 1.5 cm Signed by: Dr Patrick Hunt MD on 06/25/2018 7:56 PM Dictated By: PATRICK HUNT MD 53 Transcribed By: RUPERT on 06/25/181955 COPY TO: TERESA GUERRA NP
--- NOTE | 2018-10-04 17:40 | NUR ---
RADIOLOGY AT BEDSIDE FOR CXR AT THIS TIME.
[2018-10-04] MEDS ORDERED: ASPIRIN 81 MG CHEW TAB PO ONE (17:45)
[2018-10-04 18:06] LABS: BASOPHILS % 0.4 % (0.0-1.0); EOSINOPHILS # (AUTO) 0.1 (0.0-0.4); EOSINOPHILS % 1.9 % (0.0-6.0); HEMOGLOBIN 10.7 g/dL (12.0-16.0); LYMPHOCYTES # (AUTO) 1.1 (1.0-3.2); LYMPHOCYTES % 15.7 % (18.0-39.1); MEAN CORPUSCULAR HEMOGLOBIN 24.5 pg (28-32); MEAN CORPUSCULAR HGB CONC 30.6 g/dL (31-35); MEAN CORPUSCULAR VOLUME 80.3 fL (81-99); MONOCYTES # (AUTO) 0.5 (0.2-0.8); MONOCYTES % 6.6 % (4.4-11.3); NEUTROPHILS # (AUTO) 5.1 (2.1-6.9); NEUTROPHILS % 73.8 % (38.7-80.0); PLATELET COUNT 235 x10e3/uL (140-360); RED BLOOD COUNT 4.36 x10e6/uL (3.6-5.1); RED CELL DISTRIBUTION WIDTH 17.7 % (11.7-14.4)
[2018-10-04 18:13] LABS: INR 0.9; PROTHROMBIN TIME 12.6 seconds (11.9-14.5)
[2018-10-04 18:24] LABS: ALANINE AMINOTRANSFERASE 16 IU/L (0-55); ALBUMIN 3.7 g/dL (3.5-5.0); ALBUMIN/GLOBULIN RATIO 1.1 (0.8-2.0); ALKALINE PHOSPHATASE 62 IU/L (40-150); ANION GAP 10.4 mmol/L (8-16); BLOOD UREA NITROGEN 11 mg/dL (7-26); BUN/CREATININE RATIO 15 (6-25); CALCIUM 8.7 mg/dL (8.4-10.2); CARBON DIOXIDE 24 mmol/L (22-29); CHLORIDE 106 mmol/L (98-107); CREATINE KINASE 52 IU/L (29-168); CREATININE, SERUM 0.72 mg/dL (0.57-1.11); EST GLOMERULAR FILTRATION RATE > 60 ML/MIN (60-); GLUCOSE 111 mg/dL (74-118); POTASSIUM 3.4 mmol/L (3.5-5.1); SODIUM 137 mmol/L (136-145)
[2018-10-04 18:58] LABS: CLARITY,URINE SL CLOUDY (CLEAR); COLOR,URINE STRAW (YELLOW)
[2018-10-04 18:59] LABS: BILIRUBIN,URINE NEGATIVE (NEGATIVE); KETONES,URINE NEGATIVE (NEGATIVE); LEUKOCYTE ESTERASE ,URINE NEGATIVE (NEGATIVE); NITRITE,URINE NEGATIVE (NEGATIVE); PROTEIN,URINE DIPSTICK 1+ (NEGATIVE); URINE UROBILINOGEN 0.2 mg/dL (0.2 - 1)
--- NOTE | 2018-10-04 19:03 | Diagnostic Imaging Report ---
A single frontal view of the chest. HISTORY: Chest pain COMPARISON: None available. DISCUSSION: Portable technique, limits sensitivity of the exam. Soft tissue attenuation partially limits sensitivity of the exam. Multiple overlying artifacts. Tubes/Lines: None Lungs and pleura: Low lung volumes result in bibasilar vascular crowding, accentuation of the pulmonary interstitial markings, central pulmonary vasculature, and the cardiac silhouette. Allowing for these limitations, the findings are as follows: Elevation versus eventration of the right hemidiaphragm. Mild right lung base peripheral atelectasis versus scarring. No evidence of a consolidative pneumonia or pulmonary alveolar edema. No definite pleural effusion or pneumothorax is identified. Heart and mediastinum: The cardiomediastinal silhouette appears unremarkable. Bones and soft tissues: Appear unremarkable, given this limited exam. IMPRESSION: Eventration versus elevation of the right hemidiaphragm with adjacent mild peripheral atelectasis versus scarring. Signed by: Dr. Naseem Cooley D.O., M.M.M. on 10/04/2018 7:00 PM
--- NOTE | 2018-10-04 19:05 | NUR ---
REPORT GIVEN TO CLARA BALDERRAMA.
[2018-10-04] MEDS ORDERED: MEDROXYPROGESTE10 MG PO (19:52)
[2018-10-04] MEDS ORDERED: DONNATAL/LIDOCAINE/MAALOX 30 ML SUSP PO ONE (21:15)
[2018-10-04] MEDS ORDERED: MECLIZINE HCL 12.5 MG TAB PO ONE (21:15)
[2018-10-04] MEDS ORDERED: LIDOCAINE VISC 2% SOLN 15 ML UDC ONE (21:49)
[2018-10-04] MEDS ORDERED: ASPIRIN 81 MG ENTERIC COATED PO ONE (21:49)
[2018-10-04] MEDS ORDERED: MAGNESIUM/ALUMINUM/SIMETHICONE 30 ML UDC ONE (21:50)
[2018-10-04] MEDS ORDERED: BELLADONNA ALK/PHENOBARBITAL 5 ML UDC ONE (21:50)
[2018-10-04] MEDS ORDERED: MECLIZINE HCL12.5 MG PO (22:36)
[2018-10-05 00:30] VITALS: BP 109/66
== END 2018-10-04 23:55 | disposition home or self-care (01) ==
LOC: ER 17:35
DX: R51 Headache (principal); H81.12 Benign paroxysmal vertigo, left ear
CPT/HCPCS: 36415; 71045; 80053; 81001; 82550; 82553; 83880; 84484; 85025; 85610; 85730; 93005; 99284; J8597